=== PATIENT | male | born 1965 | race American Indian/Alaskan Native ===

== ENCOUNTER 2021-08-02 03:14 | Emergency (ER) | payer MEDICARE, OTHER ==
[2021-08-02] MEDS ORDERED: SODIUM CHLORIDE 0.9% 1000 ML 1,000 ML IV ONE ×2 (05:15→06:16)
[2021-08-02] MEDS ORDERED: ONDANSETRON 4 MG/2 ML INJ IV ONE (05:15)
[2021-08-02] MEDS ORDERED: DICYCLOMINE 20 MG/2 ML INJ IM ONE (05:15)
--- NOTE | 2021-08-02 05:17 | Event Note ---
ED Screening Note Date of service: 08/02/21 Time: 05:16 ED Screening Note: Patient is a 56-year-old F [place] male who is presenting with nausea vomiting and a raw sensation in his epigastrium. States there is a burning does go into his chest. Patient states the color of his emesis is changed over the last several days and nights ago had a coffee ground appearance. This initial assessment/diagnostic orders/clinical plan/treatment(s) is/are subject to change based on patients health status, clinical progression and re- assessment by fellow clinical providers in the ED. Further treatment and workup at subsequent clinical providers discretion. Patient/guardian urged not to elope from the ED as their condition may be serious if not clinically assessed and managed. Initial orders include: Patient started on IV fluids Zofran Protonix and labs have been initiated
[2021-08-02 05:39] LABS: Basophils % (Auto) 0.8 % (0.0-1.8); Eosinophils % (Auto) 0.1 % (0.0-4.3); Hematocrit 45.4 % (35.5-45.6); Hemoglobin 14.9 gm/dl (11.8-15.2); Lymphocytes % (Auto) 17.4 % (13.4-35.0); Mean Corpuscular HGB Conc 33 % (32-34); Mean Corpuscular Volume 99 fl (84-94); Monocytes # (Auto) 0.6 K/mm3 (0.0-0.8); Platelet Count 207 K/mm3 (140-440); Red Blood Count 4.57 M/mm3 (3.65-5.03)
[2021-08-02 06:02] LABS: INR 0.86 (0.87-1.13)
[2021-08-02 06:04] LABS: Alanine Aminotransferase 17 units/L (7-56); Albumin 4.3 g/dL (3.9-5); BUN/Creatinine Ratio 19; Blood Urea Nitrogen 26 mg/dL (9-20); Calcium 8.7 mg/dL (8.4-10.2); Hemolysis Index 6
[2021-08-02] MEDS ORDERED: chlorproMAZINE 50 MG/2 ML INJ IM ONE (06:16)
--- NOTE | 2021-08-02 06:31 | Emergency Department Report ---
ED General Adult HPI - General Chief complaint: Chest Pain Stated complaint: CHEST PAIN/ NAUSEA/VOMITING Time Seen by Provider: 08/02/21 05:13 Source: patient, EMS Mode of arrival: Stretcher Limitations: No Limitations - History of Present Illness Initial comments: Patient presents with hiccups. Has been having hiccups for the last several days. He has not found anything to control it. He started having pain in the epigastric area and substernal area following the hiccups. He states that this area feels raw. He is used [id number] medication without symptomatic improvement. He states that he was here, but old records have been reviewed and I do not see a visit for him at this facility for hiccups recently. Regardless, patient states he has acid reflux. Has had this happen before. He was told it was related to his acid reflux. He has been taking medicine for acid reflux without symptomatic improvement. There has been no fever or chills. Has had no cough or congestion. He did not have chest pain prior to symptom onset. He does not feel dizzy or lightheaded. He does report that he is sore and having trouble sleeping. He just did not know where else to turn. - Related Data Previous Rx's Medication Instructions Recorded Last Taken Type Famotidine [Pepcid] 20 mg PO BID #60 tablet 08/02/21 Unknown Rx Sucralfate [Carafate] 1 gm PO ACHS #120 udc 08/02/21 Unknown Rx Allergies Allergy/AdvReac Type Severity Reaction Status Date / Time tramadol Allergy Shortness Verified 08/02/21 04:35 of Breath ED Review of Systems ROS: Stated complaint: CHEST PAIN/ NAUSEA/VOMITING Other details as noted in HPI Comment: All other systems reviewed and negative Constitutional: denies: fever Eyes: denies: vision change ENT: denies: epistaxis Respiratory: denies: cough Cardiovascular: as per HPI Endocrine: denies: unexplained weight loss Gastrointestinal: denies: hematemesis Genitourinary: denies: hematuria Musculoskeletal: denies: back pain Skin: denies: rash Neurological: denies: headache Hematological/Lymphatic: denies: easy bruising ED Past Medical Hx - Past Medical History Hx Hypertension: Yes Hx Seizures: Yes - Family History Family history: hypertension - Medications Home Medications: Home Medications Medication Instructions Recorded Confirmed Last Taken Type Famotidine [Pepcid] 20 mg PO BID #60 tablet 08/02/21 Unknown Rx Sucralfate [Carafate] 1 gm PO ACHS #120 udc 08/02/21 Unknown Rx ED Physical Exam - General Limitations: No Limitations, Other (Pulse ox noted and normal) General appearance: alert, in no apparent distress - Head Head exam: Present: atraumatic, normocephalic - Eye Eye exam: Present: normal appearance, EOMI - ENT ENT exam: Present: normal orophraynx, normal external ear exam - Neck Neck exam: Present: normal inspection. Absent: meningismus - Respiratory Respiratory exam: Present: normal lung sounds bilaterally. Absent: respiratory distress - Cardiovascular Cardiovascular Exam: Present: regular rate, normal rhythm - GI/Abdominal GI/Abdominal exam: Present: soft. Absent: tenderness - Extremities Exam Extremities exam: Present: normal capillary refill. Absent: calf tenderness - Back Exam Back exam: Absent: CVA tenderness (R), CVA tenderness (L) - Neurological Exam Neurological exam: Present: alert, oriented X3, CN II-XII intact. Absent: motor sensory deficit - Psychiatric Psychiatric exam: Present: normal affect, normal mood - Skin Skin exam: Present: warm, dry ED Course Vital Signs 08/02/21 08/02/21 08/02/21 04:35 05:30 06:30 Temperature 97.7 F Pulse Rate 82 77 71 Respiratory 18 18 17 Rate Blood Pressure 148/88 169/98 176/99 [Left] O2 Sat by Pulse 100 99 99 Oximetry - Reevaluation(s) Reevaluation #1: 08/02/21 06:30 Labs have been ordered. Medications were ordered. Old records noted. Reevaluation #2: 08/02/21 08:30 Patient was feeling better. Hiccups had resolved. There was no pain. Troponins have been reviewed. Patient was discharged. ED Medical Decision Making - Lab Data Result diagrams: 08/02/21 05:30 08/02/21 05:30 Rhythm strip: Normal sinus rhythm without ectopy per monitor observe 10 seconds. - Medical Decision Making Patient presented with hiccups and chest pain with epigastric pain. Whether this was related to a primary Cause or acid reflux was unclear. Regardless, there does not appear to be any angina equivalent. Patient does not have elevation in troponin. Symptoms do not seem to be exertional. I do not believe this represents ACS. Patient was treated symptomatically and referred. There was no clinical evidence of hepatitis or pancreatitis. He did not have adventitious breath sounds suggestive of pneumonia. There was no trauma associated with this. Critical Care Time: No Critical care attestation.: If time is entered above; I have spent that time in minutes in the direct care of this critically ill patient, excluding procedure time. ED Disposition Clinical Impression: Hiccups Disposition: HOME / SELF CARE / HOMELESS Is pt being admited?: No Condition: Stable Additional Instructions: Drink plenty water. Have a bland diet. Return for problems. Follow-up with your regular doctor or the referral physician for recheck. Prescriptions: Sucralfate [Carafate] 1 gm PO ACHS #120 udc Famotidine [Pepcid] 20 mg PO BID #60 tablet Referrals: PRIMARY MD NATHANIEL [Primary Care Provider] - 3-5 Days TEVIN PABON MD [Staff Physician] - 3-5 Days
[2021-08-02 07:03] VITALS: BP 176/99
[2021-08-02] MEDS ORDERED: POTASSIUM CHLORIDE ER 20 MEQ TAB PO ONE (07:55)
== END 2021-08-02 08:41 | disposition home or self-care (01) ==
LOC: ED 03:14
DX: R06.6 Hiccough (principal)
CPT/HCPCS: 36415; 80053; 83690; 84484; 85025; 85610; 85730; 96361; 96372; 96374; 99284; J0500; J2405; J3230; J7030; 80320; Q0162; G0480